=== PATIENT | male | born 1990 | race Caucasian/White ===

== ENCOUNTER 2017-11-19 15:21 | Inpatient (IN) ==
[2017-11-19] MEDS ORDERED: NS 1,000 ML IV ONE (15:51)
[2017-11-19] MEDS: SALINE FLUSH 10ml SYRINGE IVF PRN (15:59)
[2017-11-19] MEDS ORDERED: KETAMINE 500 MG/10 ML INJECTION IVP ONE (16:40)
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
[2017-11-19] MEDS ORDERED: BISACODYL 10 MG SUPPOSITORY RECTALLY PRN (17:08)
[2017-11-19] MEDS: LR 1,000 ML IV SCH (17:34)
[2017-11-19 18:02] VITALS: BMI 23.9
[2017-11-19] MEDS: PANTOPRAZOLE 40 MG INJECTION IVP SCH ×2 (18:46→21:23)
[2017-11-19] MEDS: FOLIC ACID 5 MG/ML INJECTION IVP SCH (18:47)
[2017-11-19] MEDS: THIAMINE 200mg/2ml INJECTION IVP SCH (18:47)
--- NOTE | 2017-11-19 20:20 | XRay Report ---
Indication: OVERDOSE XR chest 1V: Comparison: 11/16/2017 Technique: Single portable upright chest Findings: Patient shows a much shallower inspiratory effort on the current study without additional acute findings. The heart, central vascularity mediastinum is unremarkable. Lungs are clear. Impression: No acute findings. Patient did take a shallow inspiratory effort than on the comparison study. .
--- NOTE | 2017-11-19 20:22 | CT Scan Report ---
Indication: seizure CT head/brain wo con: Comparison: None Technique: Nonenhanced imaging with dose reduction imaging technology with brain and bone window evaluation provided. Findings: Patient shows no acute intracranial findings. Ventricular size is normal. No suggestion of hemorrhage, midline shift or mass effect is noted. No other acute intracranial findings were seen. Bone window evaluation shows no acute bony findings. Visualized sinuses and mastoids are unremarkable. No bony fracture seen. Impression: 1. No acute intracranial abnormality. 2. Findings communicated to ordering ER clinician by the V rad service on a callback basis. .
[2017-11-19] MEDS ORDERED: BISACODYL 10 MG SUPPOSITORY RECTALLY ONE (23:19)
[2017-11-20] MEDS: SALINE FLUSH 10ml SYRINGE IVF PRN ×2 (02:17→13:31)
[2017-11-20] MEDS: LR 1,000 ML IV SCH ×2 (03:32→13:53)
[2017-11-20] MEDS: PANTOPRAZOLE 40 MG INJECTION IVP SCH (08:59)
[2017-11-20] MEDS: ENOXAPARIN 40 MG/0.4 ML INJECTION SQ SCH (08:59)
[2017-11-20] MEDS: FOLIC ACID 5 MG/ML INJECTION IVP SCH (09:03)
[2017-11-20] MEDS: THIAMINE 200mg/2ml INJECTION IVP SCH (09:04)
--- NOTE | 2017-11-20 15:38 | Progress Note ---
- Date 11/20/17 Subjective: Adam was seen in CCU. He was initially minimally responsive although began talking more. He denied dyspnea, nausea, or pain expressed frustration that he wasn't able to leave just because he tried to kill himself stating "it's my body ". He initially indicated no interest in psychiatric hospitalization but when advised that following a suicide attempt (patient confirms he was trying to kill himself with medication ingestion) he agrees to inpatient psychiatry and then asked if he should be able to go back to inpatient drug and alcohol treatment. He additionally confirmed that he walked out of [facility] where he was receiving treatment for substance abuse. He denied interest in food at the time of my visit but shortly after I left the asked nursing if he can get a nicotine patch. Patient asked about injuries he sustained with overdose and reported that the thumb abrasion was unrelated to the overdose prompting hospitalization. He denies awareness of any oral injuries today and was surprised to hear there was concern about possible seizure prior to hospitalization Objective Vital signs: Temperature 98.6 F 11/20/17 15:00 Pulse Rate 90 11/20/17 15:00 Respiratory Rate 17 11/20/17 15:00 Blood Pressure 111/61 11/20/17 15:00 Pulse Oximetry 96 11/20/17 15:00 NAD, variable level of responsiveness-intentional; when he responds responses are appropriate Oropharynx clear and without evidence of tongue or lip injuries, conjugate gaze , sclera anicteric Respirations nonlabored, decreased inspiratory effort but breath sounds clear Regular rhythm with low-grade tachycardia, S1-S2 Abdomen soft, nontender, diminished bowel sounds; full catheter present Extremities without edema MAEW per nursing; restraints on Abrasion right thumb Rhythm: Sinus Tachycardia Height/Weight/BMI: Height 1.68 m Weight 68.5 kg Body Mass Index 23.9 Results - Labs CBC & Chem 7: 11/20/17 03:49 11/19/17 17:32 Labs: Blood sugars 85-81-75 - ABG Interpretation Attestation: I reviewed and interpreted this ABG. (unremarkable) ABG results: 11/20/17 07:30 ABG pH 7.430 ABG pCO2 45 ABG pO2 94 ABG HCO3 30 H ABG Total CO2 31.3 H ABG O2 Saturation 98.0 ABG Base Excess 4.8 H - Imaging and Cardiology CT scan - head Status: image reviewed by me (CT head unremarkable) Assessment and Plan (1) Multiple drug overdose Current visit: Yes Status: Acute Assessment and Plan: Assessment: Polysubstance overdose Suicide attempt History of EtOH and/or polysubstance abuse, leaving AMA from treatment center at the time of overdose per report Tachycardia, sinus in the setting of atarax/zyprexa OD Acute encephalopathy secondary to polysubstance ingestion --> Reportedly took 3 week supply of zyprexa, atarax, prozac --> Intermittently somnolent and combative but appears to be protecting airway Plan: Becoming progressively more alert, remains in restraints-will remove one arm to permit oral diet. Seizure and suicide precautions. Cruz catheter in for probable urinary retention with Atarax-anticipate removing tomorrow. Place cruz catheter; anticipate significant urinary retention with atarax overdose Telemetry strips reviewed-sinus rhythm/low-grade sinus tach without QTC prolongation. Patient now reports he's agreeable to inpatient psychiatric stabilization following suicidal attempt/overdose and that he wishes to go back to rehabilitation in the future as well. Asymmetric pupils described on admission-has normalized and both react symmetrically today. Case management involved and evaluating inpatient options for psychiatric care. LR @ 100 ml/hour; monitor hemodynamics closely Accuchecks Q6H while NPO IV protonix, thiamine and folate until awake and able to take po medications; add nicotine patch. Continue to hold all home medications acutely Supplemental history provided by nursing. - Physician Narrative Narrative: Date: 11/20/17 Time: 1533 Hospital Course Summary Disclaimer: The visit summary below is not to be considered part of the above Progress Note. Hospital Course: 11/19/17 Hospitalized after taking 3 weeks of Prozac, Atarax, and Zyprexa after leaving [facility] AGAINST MEDICAL ADVICE. Encephalopathic/agitated on arrival requiring leather restraints. Cruz catheter placed due to risk of urinary retention/anticholinergic side effect. Ativan when necessary for agitation and seizure risk. IV Protonix, thiamine, and folate initiated until able to take by mouth medications. 11/20/17 More alert/interactive today. Acknowledges suicidal attempt and frustrated that psychiatric consultation/hospitalization recommended. Agreeable to inpatient psychiatry and would like to return to inpatient substance counseling in the near future as well. Diet being initiated, continue IV fluids. Convert PPI/thiamine/folic acid to oral administration. Nicotine patch initiated per patient request.
[2017-11-20] MEDS: NICOTINE 21 MG PATCH TD SCH (16:44)
[2017-11-21] MEDS: LR 1,000 ML IV SCH ×2 (00:03→10:10)
[2017-11-21] MEDS ORDERED: OMEPRAZOLE 20 MG CAPSULE PO SCH (08:00)
[2017-11-21] MEDS: NICOTINE 21 MG PATCH TD SCH (08:56)
[2017-11-21] MEDS ORDERED: FOLIC ACID 1 MG TABLET PO SCH (09:00)
[2017-11-21] MEDS ORDERED: NICOTINE PATCH REMOVAL TD SCH (09:00)
[2017-11-21] MEDS: ENOXAPARIN 40 MG/0.4 ML INJECTION SQ SCH (10:47)
[2017-11-21 11:11] VITALS: TEMP 98
--- NOTE | 2017-11-21 14:33 | Progress Note ---
- Date 11/21/17 Subjective: Adam is more alert this morning and has been ambulating in the halls with nursing at his side. Eaton catheter was discontinued shortly before I saw him. Nursing reports good oral intake and IV fluids will be discontinued. Patient reports he doesn't remember the night that he came in but recalls feeling hopeless and that typically he would drink or use methn that situation but it was Monday and he didn't have access to any drugs so he took all his prescription medications instead. Today he reports that he is embarrassed by his actions and appreciates consistencies received. He denies dyspnea, nausea, or heartburn. He denies pain, fevers, or lightheadedness. Agreeable to inpatient psychiatric care and reports he has previously been hospitalized for suicidal thoughts and attempts. He was on Zyprexa for paranoia and feeling that people are talking about him and felt that it helped in the past. Objective Vital signs: Temperature 98 F 11/21/17 11:00 Pulse Rate 85 11/21/17 12:00 Respiratory Rate 40 H 11/21/17 11:00 Blood Pressure 124/68 11/21/17 10:00 Pulse Oximetry 96 RA 11/21/17 10:45 I/O 3188/2319 NAD, alert Conjunctiva clear, oropharynx clear, conjugate gaze Respirations nonlabored, good airflow, breath sounds clear Regular rhythm, S1-S2 Abdomen soft, nontender, bowel sounds present Ambulates without difficulty, MAEW flat affect Rhythm: Normal Sinus Rhythm Height/Weight/BMI: Height 1.68 m Weight 65.4 kg Body Mass Index 23.9 Results - Labs CBC & Chem 7: 11/20/17 03:49 11/20/17 16:08 - ABG Interpretation ABG results: 11/20/17 07:30 ABG pH 7.430 ABG pCO2 45 ABG pO2 94 ABG HCO3 30 H ABG Total CO2 31.3 H ABG O2 Saturation 98.0 ABG Base Excess 4.8 H Assessment and Plan (1) Multiple drug overdose Current visit: Yes Status: Acute Assessment and Plan: Assessment: Polysubstance overdose Suicide attempt History of EtOH and/or polysubstance abuse, leaving AMA from treatment center at the time of overdose per report Tachycardia, sinus in the setting of atarax/zyprexa OD Acute encephalopathy secondary to polysubstance ingestion --> Reportedly took 3 week supply of zyprexa, atarax, prozac --> Intermittently somnolent and combative but appears to be protecting airway Plan: Patient is much more alert and interactive today, restraints discontinued. Eaton out and IV fluids DC'd. Patient acknowledges suicidal intent, will require psychiatric stabilization- case management referring Maximo Gil and Gunnar Continue suicide precautions; continue thiamine, folic acid, and omeprazole. - Physician Narrative Narrative: Date: 11/21/17 Time: 1428 Hospital Course Summary Disclaimer: The visit summary below is not to be considered part of the above Progress Note. Hospital Course: 11/19/17 Hospitalized after taking 3 weeks of Prozac, Atarax, and Zyprexa after leaving [facility] AGAINST MEDICAL ADVICE. Encephalopathic/agitated on arrival requiring leather restraints. Eaton catheter placed due to risk of urinary retention/anticholinergic side effect. Ativan when necessary for agitation and seizure risk. IV Protonix, thiamine, and folate initiated until able to take by mouth medications. 11/20/17 More alert/interactive today. Acknowledges suicidal attempt and frustrated that psychiatric consultation/hospitalization recommended. Agreeable to inpatient psychiatry and would like to return to inpatient substance counseling in the near future as well. Diet being initiated, continue IV fluids. Convert PPI/thiamine/folic acid to oral administration. Nicotine patch initiated per patient request. 11/21/17 Medically stable, restraints discontinued, IV fluids and IV fluids discontinued , Eaton out. Will require inpatient psychiatric stabilization as patient acknowledges suicidal attempt.
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
[2017-11-21 19:17] VITALS: BP 150/90; PULSE 84; RESP 21; O2SAT 94
== END 2017-11-21 20:10 | DRG 917 ==
LOC: ED 15:21 → CCU 16:13 → SUATTDRO 16:13 → CCU 16:55
PROVIDERS: ADMIT Internal Medicine; ATTEND Internal Medicine